=== PATIENT | male | born 1975 | race Two or more races ===

== ENCOUNTER 2016-04-16 13:08 | Day surgery (SDC) | payer OTHER ==
[~2016-04-16 13:08] MED LIST: CEFAZOLIN SODIUM 2 GRAM PREMIX 100 ML IV ONE; CEFAZOLIN SODIUM 2 GRAM PREMIX 100 ML IV PRN; IV START KIT ONE; LACTATED RINGERS 1,000 ML ONE
[2016-04-16] MEDS ORDERED: MIDAZOLAM HCL 5 MG/5 ML VIAL ONE (14:22)
[2016-04-16] MEDS ORDERED: FENTANYL 5 ML ONE (14:23)
[2016-04-16] MEDS ORDERED: PROPOFOL 20 ML IV ONE (14:26)
[2016-04-16] MEDS ORDERED: CEFAZOLIN SODIUM 1,000 MG VIAL ONE (14:32)
[2016-04-16] MEDS ORDERED: SODIUM CHLORIDE 0.9% FLUSH 10 ML ONE (14:32)
[2016-04-16] MEDS ORDERED: BUPIVACAINE 0.5% W/EPI SDV 30 ML VIAL ONE (14:32)
[2016-04-16] MEDS ORDERED: ONDANSETRON 4 MG/2ML 2 ML VIAL ONE (14:35)
[2016-04-16] MEDS ORDERED: DEXAMETHASONE SOD PHOS 4 MG/1 ML VIAL ONE (14:35)
[2016-04-16] MEDS ORDERED: NALOXONE HCL 0.4 MG/ML VIAL IV PRN (14:50)
[2016-04-16] MEDS ORDERED: ATROPINE SULFATE 0.4 MG/1 ML VIAL IV PRN (14:50)
[2016-04-16] MEDS ORDERED: ONDANSETRON 4 MG/2ML 2 ML VIAL IV PRN ×2 (14:50→15:53)
[2016-04-16] MEDS ORDERED: PROMETHAZINE HCL 25 MG/ML VIAL IM PRN (14:50)
[2016-04-16] MEDS ORDERED: FENTANYL 100 MCG/2 ML VIAL IV PRN (14:50)
[2016-04-16] MEDS ORDERED: ROCURONIUM BROMIDE 10 MG/ML DOSE IV ONE (14:54)
[2016-04-16] MEDS ORDERED: LACTATED RINGERS 1,000 ML IV SCH (15:00)
[2016-04-16] MEDS ORDERED: KETOROLAC TROMETHAMINE 30 MG/ML 1 ML VIAL ONE (15:13)
[2016-04-16] MEDS ORDERED: HYDROMORPHONE HCL 1 MG/ML SYRINGE ONE (15:29)
[2016-04-16] MEDS: HYDROMORPHONE HCL 1 MG/ML SYRINGE IV PRN ×2 (15:33→15:46)
[2016-04-16] MEDS ORDERED: MORPHINE SULFATE 2 MG/ML SYRINGE IV PRN (15:53)
[2016-04-16] MEDS ORDERED: KETOROLAC TROMETHAMINE 30 MG/ML 1 ML VIAL IV PRN (15:53)
[2016-04-16] MEDS ORDERED: OXYCODONE/ACETAMINOPHEN 5/325 MG TABLET ONE ×2 (16:39→16:56)
[2016-04-16] MEDS: OXYCODONE/ACETAMINOPHEN 5/325 MG TABLET PO PRN ×2 (16:40→16:57)
--- NOTE | 2016-04-17 07:16 | OP ---
Patrick Anglin Jr. [id number] DATE: 04/16/2016 PREOPERATIVE DIAGNOSIS: Incisional hernia. POSTOPERATIVE DIAGNOSIS: Incisional hernia. PROCEDURE: Incisional hernia repair with small Ventralex mesh patch. SURGEON: Tay Ayala M.D. [employer] TECHNICIAN: Poonam. ANESTHESIA: Bahrke, General. INDICATION: This is a 41-year-old male with prior laparoscopic cholecystectomy who has a hernia near the umbilicus. He has had an episode of incarceration that required emergency room visit with reduction. He presents now for elective repair. DESCRIPTION: With informed consent he was taken to the operating room where he was laid supine on the operating room table. General anesthesia was administered. The abdomen was prepped and draped in the usual fashion. Local anesthetic was administered around the umbilicus. A curvilinear incision was made. We dissected down to the hernia sac. There was quite a bit of preperitoneal fat along with the sac. The sac was from the umbilical skin. The sac was excised at the level of the fascia using electrocautery. The actual defect was relatively small consistent with his recent history of incarceration. I chose to fix this with a small Ventralex mesh patch, this was placed intraabdominally. Care was taken to ensure that there was no visceral structures between the mesh and the abdominal wall. This was secured circumferentially with 2-0 Vicryl's. The tails were cut away. The wound was irrigated. We appeared to have adequate hemostasis. Umbilical skin was sutured down near the fascia with some 3-0 Vicryl. Subcutaneous tissue was brought together with 3-0 Vicryl and the skin was closed with a running subcuticular 4-0 Monocryl. Mastisol and Steri-Strips were placed. Sterile dressings were applied. He tolerated the procedure and was taken to the recovery room in stable condition. Note was made that needle, instrument, and lap counts were reported as correct at the time of closure. JOB: [id number] CC: Dr. Scott Ariza
== END 2016-04-16 18:40 | disposition home or self-care (01) ==
LOC: SDC 13:08
PROVIDERS: ATTEND Surgery
PROC: 0WUF0JZ Supplement Abdominal Wall with Synthetic Substitute, Open Approach (ICD-10-PCS; principal; 2016-04-16)
DX: K43.2 Incisional hernia without obstruction or gangrene (principal); K21.9 Gastro-esophageal reflux disease without esophagitis; Z88.2 Allergy status to sulfonamides
CPT/HCPCS: 49560; 49568; J0690 ×2; J1170; J3010; J1100; A9270 ×2; J1885; J2250; J2405; J7120